=== PATIENT | female | born 1990 | race Caucasian/White ===

== ENCOUNTER 2016-03-22 15:12 | Emergency (ER) | payer MEDICAID ==
[~2016-03-22] VITALS: Ht 170.2 cm; Wt 102.0 kg
[~2016-03-22 15:12] MED LIST: CYCL-36 PO; DICL50 PO
[2016-03-22 15:13] VITALS: BP 128/83; PULSE 103; RESP 18; TEMP 99.2; O2SAT 97
[2016-03-22] MEDS ORDERED: SODIUM CHLOR 0.9% 1000 ML INJ 1,000 ML IV ONE (15:49)
[2016-03-22] MEDS ORDERED: SODIUM CHLORIDE 0.9% FLUSH 5 ML FLUSH IVF PRN (16:00)
[2016-03-22] MEDS ORDERED: ONDANSETRON HCL 4 MG/2 ML VIAL IM ONE (16:00)
[2016-03-22] MEDS ORDERED: MORPHINE SULFATE 4 MG/ML INJ IV PUSH ONE (16:00)
[2016-03-22] MEDS ORDERED: ONDANSETRON HCL 4 MG/2 ML VIAL IV PUSH ONE (16:15)
[2016-03-22 16:17] LABS: AUTOMATED NEUTROPHIL # 4.8 TH/MM3 (1.8-7.7); BASOPHIL % 0.2 % (0.0-2.0); EOSINOPHIL # 0.1 TH/MM3 (0-0.4); HEMATOCRIT 35.5 % (35.0-46.0); HEMO FLAGS DIFF FINAL; LYMPH % 24.7 % (9.0-44.0); LYMPHOCYTE # 1.8 TH/MM3 (1.0-4.8); MEAN CELL VOLUME 86.8 FL (80.0-100.0); MEAN CORPUSCULAR HEMOGLOBIN 29.1 PG (27.0-34.0); MEAN CORPUSCULAR HGB CONC 33.5 % (32.0-36.0); MONO % 6.8 % (0.0-8.0); NEUT % 67.3 % (16.0-70.0); PLATELET COUNT 221 TH/MM3 (150-450); RED BLOOD COUNT 4.09 MIL/MM3 (4.00-5.30); RED CELL DISTRIBUTION WIDTH 12.7 % (11.6-17.2); WHITE BLOOD COUNT 7.2 TH/MM3 (4.0-11.0)
--- NOTE | 2016-03-22 16:23 | PD ---
HPI Chief Complaint: Abdominal Pain Time Seen by Provider: 15:38 Travel History International Travel<30 days: No Contact w/Intl Traveler<30days: No Traveled to known affect area: No History of Present Illness HPI Patient's 25-year-old female who presents to emergency with complaints of lower abdominal pain and cramping. She reports that she had a 2 days ago at [facility]. Reports that since her , she has had increased lower abdominal pain and cramping since her . Reports that she has also been passing blood clots. Reports that this is her second and reports that "my first wasn't this painful." Denies fever/chills. Denies n/v/d. No ohter c/o at this time. PFSH Past Medical History Anxiety: Yes Immunizations Current: No Influenza Vaccination: No ?: Not : 5 Para: 3 Miscarriage: 1 : 2 Past Surgical History Surgical History: No Previous Surgery Social History Alcohol Use: No Tobacco Use: No Substance Use: No Allergies-Medications (Allergen,Severity, Reaction): Coded Allergies: No Known Allergies (Unverified , 03/22/16) Reported Meds & Prescriptions Reported Meds & Active Scripts Active Ibuprofen 600 Mg Tab 600 Mg PO Q6H PRN Macrobid (Nitrofurantoin Monoh/Nitrofur Macro) 100 Mg Cap 100 Mg PO BID 10 Days Review of Systems General / Constitutional: No: Fever Eyes: No: Visual changes HENT: No: Headaches Cardiovascular: No: Chest Pain or Discomfort Respiratory: No: Shortness of Breath Gastrointestinal: Positive: Abdominal Pain, No: Nausea, Vomiting Genitourinary: Positive: Pelvic Pain, No: Urgency, Frequency, Dysuria Musculoskeletal: No: Pain Skin: No Rash Neurologic: No: Weakness Psychiatric: No: Depression Endocrine: No: Polydipsia Hematologic/Lymphatic: No: Easy Bruising Physical Exam Narrative GENERAL: Patient in moderate distress SKIN: Warm and dry. HEAD: Atraumatic. Normocephalic. EYES: No injection or drainage. ENT: No nasal bleeding or discharge. Mucous membranes pink and moist. NECK: Trachea midline. No JVD. CARDIOVASCULAR: Regular rate and rhythm. No murmur appreciated. RESPIRATORY: No accessory muscle use. Clear to auscultation. Breath sounds equal bilaterally. GASTROINTESTINAL: Abdomen soft, increased tenderness to lower abdomen with guarding on exam MUSCULOSKELETAL: No obvious deformities. No clubbing. No cyanosis. No edema. NEUROLOGICAL: Awake and alert. No obvious cranial nerve deficits. Motor grossly within normal limits. Normal speech. PSYCHIATRIC: Appropriate mood and affect; insight and judgment normal. Data Data Last Documented VS Vital Signs Date Time Temp Pulse Resp B/P Pulse Ox O2 Delivery O2 Flow Rate FiO2 03/22/16 17:00 81 16 119/68 98 03/22/16 15:13 99.2 Orders Complete Blood Count With Diff (03/22/16 15:49) Comprehensive Metabolic Panel (03/22/16 15:49) Urinalysis - C+S If Indicated (03/22/16 15:49) Iv Access Insert/Monitor (03/22/16 15:49) Sodium Chloride 0.9% Flush (Ns Flush) (03/22/16 16:00) Sodium Chlor 0.9% 1000 Ml Inj (Ns 1000 M (03/22/16 15:49) Ondansetron Inj (Zofran Inj) (03/22/16 16:00) Morphine Inj (Morphine Inj) (03/22/16 16:00) Ondansetron Inj (Zofran Inj) (03/22/16 16:15) Us Pelvis Comp W Transvaginal (03/22/16 ) Hydromorphone Pf Inj (Dilaudid Pf Inj) (03/22/16 17:15) Urine Culture (03/22/16 17:00) Ceftriaxone Inj (Rocephin Inj) (03/22/16 17:45) Labs Laboratory Tests Test 03/22/16 03/22/16 15:50 17:00 White Blood Count 7.2 TH/MM3 Red Blood Count 4.09 MIL/MM3 Hemoglobin 11.9 GM/DL Hematocrit 35.5 % Mean Corpuscular Volume 86.8 FL Mean Corpuscular Hemoglobin 29.1 PG Mean Corpuscular Hemoglobin 33.5 % Concent Red Cell Distribution Width 12.7 % Platelet Count 221 TH/MM3 Mean Platelet Volume 9.4 FL Neutrophils (%) (Auto) 67.3 % Lymphocytes (%) (Auto) 24.7 % Monocytes (%) (Auto) 6.8 % Eosinophils (%) (Auto) 1.0 % Basophils (%) (Auto) 0.2 % Neutrophils # (Auto) 4.8 TH/MM3 Lymphocytes # (Auto) 1.8 TH/MM3 Monocytes # (Auto) 0.5 TH/MM3 Eosinophils # (Auto) 0.1 TH/MM3 Basophils # (Auto) 0.0 TH/MM3 CBC Comment DIFF FINAL Differential Comment Sodium Level 141 MEQ/L Potassium Level 4.1 MEQ/L Chloride Level 105 MEQ/L Carbon Dioxide Level 27.3 MEQ/L Anion Gap 9 MEQ/L Blood Urea Nitrogen 8 MG/DL Creatinine 0.73 MG/DL Estimat Glomerular Filtration 97 ML/MIN Rate Random Glucose 76 MG/DL Calcium Level 8.6 MG/DL Total Bilirubin 0.1 MG/DL Aspartate Amino Transf 12 U/L (AST/SGOT) Alanine Aminotransferase 22 U/L (ALT/SGPT) Alkaline Phosphatase 64 U/L Total Protein 7.3 GM/DL Albumin 3.3 GM/DL Urine Collection Type VOIDED Urine Color RED Urine Turbidity CLOUDY Urine pH 7.0 Urine Specific [place] 1.013 Urine Protein 300 OR GREATER mg/dL Urine Glucose (UA) 250 mg/dL Urine Ketones TRACE mg/dL Urine Occult Blood LARGE Urine Nitrite POS Urine Bilirubin NEG Urine Leukocyte Esterase MOD Urine RBC INNUM /hpf Urine WBC /hpf Urine Bacteria /hpf Microscopic Urinalysis Comment CULTURE INDICATED Urine Collection Time 1700 MDM Medical Decision Making Medical Screen Exam Complete: Yes Emergency Medical Condition: Yes Interpretation(s) Vital Signs Date Time Temp Pulse Resp B/P Pulse Ox O2 Delivery O2 Flow Rate FiO2 03/22/16 15:13 99.2 103 18 128/83 97 Differential Diagnosis Cervicitis, retained products of conception, UTI, endometritis Narrative Course Patient is a 25-year-old female who presents to emergency room 2 days after she had a plan . Patient reports that she has had increased lower abdominal cramping and pain with clots passing for the past 2 days. Patient denies nausea or vomiting, denies fevers or chills. Reports that she [facility] , reports that "no one called me back." Plan to medicate patient and provide relief the pain at this time. Pelvic ultrasound ordered to evaluate for possible endometritis versus retained products of conception. CBC Wbc 7.2 Hemoglobin 11.9 Hematocrit 35.5 Platelets 221 BMP Sodium 141 Chloride 105 Potassium 4.1 Carbon dioxide 27.3 BUN 8 Creatinine 0.73 UA and pelvic ultrasound pending UA: postive nitrite, mod leuk esterase, pelvic us: 3cm thick heterogneous mixed echogenicity in the endometrial canal likely representing hemorrhagic material. No anatomy identified. Patient drinking fluids at this time, patient feeling much better. Patient understands need to follow-up with her [facility] and return to ER as needed. A copy of patient's labs and ultrasound report was given to her discharge. Signs and symptoms of when to return to ER reviewed with patient in detail. Diagnosis Primary Impression: Abdominal pain Qualified Code: R10.30 - Lower abdominal pain Additional Impression: UTI (urinary tract infection) Qualified Code: N30.01 - Acute cystitis with hematuria Patient Instructions: Narcotic given in the ED, General Instructions Departure Forms: Tests/Procedures, Work Release Enter return to work date: Mar 25, 2016 Additional Instructions: Please follow-up with all cultures from today Please return to the emergency room as needed Please return to emergency room if symptoms return or worsen or progress Please call your orchardist first thing in the morning for earliest follow-up appointment Med/Other Pt SpecificInfo: Prescription(s) given Scripts Acetaminophen-Codeine (Tylenol-Codeine #3)300-30 mg Tab1 Tab PO Q4H PRN (PAIN) # 5 TAB Ref 0 Prov:Gloria Sabillon DO 03/22/16 Ibuprofen 600 Mg [id number] Mg PO Q6H PRN (Pain/Inflammation) #40 TAB Ref 0 Prov:Gloria Sabillon DO 03/22/16 Nitrofurantoin Monohydrate Macrocrystals (Macrobid)100 Mg Ini023 Mg PO BID 10 Days Ref 0 Prov:Gloria Sabillon DO 03/22/16 Disposition: 01 DISCHARGE HOME Condition: Stable Gloria Sabillon DO Mar 22, 2016 16:23
[2016-03-22 17:00] VITALS: BP 119/68; PULSE 81; RESP 16; O2SAT 98
[2016-03-22 17:04] LABS: CHLORIDE 105 MEQ/L (98-107); POTASSIUM 4.1 MEQ/L (3.5-5.1); SODIUM (NA) 141 MEQ/L (136-145)
[2016-03-22 17:07] LABS: ANION GAP 9 MEQ/L (5-15); BICARBONATE 27.3 MEQ/L (21.0-32.0); BLOOD UREA NITROGEN 8 MG/DL (7-18)
[2016-03-22 17:10] LABS: ALT (GPT) 22 U/L (10-53); AST (GOT) 12 U/L (15-37); GLOMERULAR FILTRATION RATE 97 ML/MIN (>89)
[2016-03-22 17:12] LABS: TOTAL BILIRUBIN ADULT 0.1 MG/DL (0.2-1.0)
[2016-03-22 17:14] LABS: ALKALINE PHOSPHATASE 64 U/L (45-117)
[2016-03-22] MEDS ORDERED: HYDROmorphone HCL PF 1 MG/ML VIAL IV PUSH ONE (17:15)
[2016-03-22 17:20] LABS: GLUCOSE,URINE 250 mg/dL (NEG); KETONE, URINE TRACE mg/dL (NEG)
[2016-03-22 17:23] LABS: BLOOD, URINE LARGE (NEG); NITRITE,URINE POS (NEG)
[2016-03-22 17:27] LABS: METHOD OF COLLECTION VOIDED; URINE COLOR RED (YELLW/STRAW)
[2016-03-22 17:28] LABS: RBC, URINE INNUM /hpf (0-3)
[2016-03-22 17:29] LABS: COMMENT (UR) CULTURE INDICATED; CULTURE IF INDICATED CULTURE INDICATED
--- NOTE | 2016-03-22 17:29 | RADHPO ---
EXAM DATE/TIME: 03/22/2016 15:59 [facility] COMPARISON: No previous studies available for comparison. INDICATIONS : Pelvic pain and vaginal bleeding S/P . MEDICAL HISTORY : Anxiety. SURGICAL HISTORY : , 2 days ago. ENCOUNTER: Initial ACUITY: 2 days PAIN SCORE: 10/10 LOCATION: Bilateral pelvis MEASUREMENTS: UTERUS: 12.9 x 7.2 x 7.8 cm ENDOMETRIAL STRIPE: >20 mm RIGHT OVARY: 2.9x 1.6 x 2.5 cm LEFT OVARY: 2.6 x 2.2 x 2.1 cm FINDINGS: UTERUS: 6.7 x 2.6 x 3.3 cm heterogeneous mixed echogenicity oval area within the fundal endometrial stripe. N o definitive internal color Doppler flow. No anatomy identified. RIGHT OVARY: Ovary contains no mass or significant cystic lesion. LEFT OVARY: Ovary contains no mass or significant cystic lesion. MISCELLANEOUS: Small amount of free fluid. CONCLUSION: 3 cm thick heterogeneous mixed echogenicity in the endometrial canal likely represent ing hemorrhagic material. No anatomy identified. No definitive internal color Doppler flow. Hunter Guallpa MD on March 22, 2016 at 17:20 Board Certified Radiologist. This report was verified electronically.
[2016-03-22] MEDS ORDERED: IBUP-232 PO (17:41)
[2016-03-22] MEDS ORDERED: MACR100C2 PO (17:41)
[2016-03-22] MEDS ORDERED: cefTRIAXone INJ 1,000 MG in SODIUM CHLORIDE 0.9% INJ 100 ML IV ONE (17:45)
[2016-03-22] MEDS ORDERED: TYLETAB34 PO (17:45)
[2016-03-22 18:10] VITALS: BP 105/52; PULSE 69; RESP 16; O2SAT 98
[2016-03-22] MEDS ORDERED: KETOROLAC TROMETHAMINE 30 MG/ML (IVP) VIAL IV PUSH ONE (19:00)
[2016-03-22 19:10] VITALS: BP 112/61; PULSE 86; RESP 18; TEMP 98.8; O2SAT 95
== END 2016-03-22 19:40 | disposition home or self-care (01) ==
LOC: PHED 15:12
DX: R10.30 Lower abdominal pain, unspecified (principal); N39.0 Urinary tract infection, site not specified
CPT/HCPCS: 76830; 76856; 80053; 81001; 85025; 87086; 96361; 96365; 96375; 99284; J0696; J1170; J1885; J2270; J2405; J7030